=== PATIENT | female | born 1960 | race Caucasian/White ===

== ENCOUNTER → 2017-05-25 | Outpatient (CLI) | payer OTHER ==
--- NOTE | 2017-05-25 11:54 | RAD ---
Abdominal ultrasound without comparison for elevated LFTs. Technique and findings: Real-time grayscale and color and spectral Doppler evaluation of the abdominal organs is performed. The IVC is patent. Other midline structures including the aorta and the pancreas are poorly visualized due to overlying bowel gas and habitus. The liver is enlarged measuring 20.2 cm in length. There is diffuse fatty infiltration of the liver, with no definite focal hepatic parenchymal abnormalities are identified. No intra or extrahepatic biliary ductal dilatation. The common bile duct measures 2 mm in diameter. The gallbladder has been surgically removed. Spleen is normal in appearance. Both kidneys are normal in size and contour, with no hydronephrosis or focal parenchymal abnormalities. Normal color Doppler flow to both kidneys. The portal vein is patent. No free or loculated fluid collections are identified. No large abdominal masses are seen. Impression: 1. Hepatomegaly with diffuse fatty infiltration. No focal parenchymal abnormalities. 2. Prior cholecystectomy.
== END | disposition home or self-care (01) ==
LOC: US 11:11
PROVIDERS: ATTEND Internal Medicine Gastroenterology
DX: K76.0 Fatty (change of) liver, not elsewhere classified (principal); R16.0 Hepatomegaly, not elsewhere classified; R79.89 Other specified abnormal findings of blood chemistry; Z90.49 Acquired absence of other specified parts of digestive tract
CPT/HCPCS: 76700

== ENCOUNTER 2017-06-27 16:50 | Emergency (ER) | payer OTHER ==
[~2017-06-27] VITALS: Ht 157.5 cm; Wt 104.3 kg
[2017-06-27] MEDS ORDERED: DEXAMETHASONE SOD PHOS 20 MG/5 ML VIAL. IV ONE (17:30)
[2017-06-27] MEDS ORDERED: ONDANSETRON PF 4 MG/2 ML VIAL. IV ONE (17:30)
[2017-06-27] MEDS ORDERED: fentaNYL PF VIAL 100 MCG/2 ML VIAL IV PRN (17:30)
--- NOTE | 2017-06-27 17:33 | EKG ---
[facility] [address] [place] [address] Test Date: 2017-06-27 Test Time: 17:02:52 Pat Name: DAO FUNK Department: Room: Gender: F Buckle Gluer: : 1960 Requested By: AYLEEN RIVERA Order Number: [id number] Reading MD: Hannah Montilla Measurements Intervals [place] Rate: 73 P: -24 NC: 120 QRS: 6 QRSD: 90 T: 43 QT: 412 QTc: 458 Interpretive Statements SINUS RHYTHM NORMAL EKG Electronically Signed On 06-28-2017 19:46:40 CDT by Hannah Montilla
--- NOTE | 2017-06-27 17:40 | PHYS DOC ---
Past Medical History Past Medical History: Anxiety, Depression, Diabetes-Type II, Hypertension, Hypothyroid, Other Additional Past Medical Histor: FATTY LIVER. Past Surgical History: Cholecystectomy, Tubal ligation Additional Past Surgical Histo: ECTOPIC , EXPLORATORY LAPROSCOPY, LAP BAND Alcohol Use: None Drug Use: None Adult General Chief Complaint Chief Complaint: SHOULDER INJURY HPI HPI Patient is a 56 year old female who presents with complaint of left-sided shoulder pain. Patient states that her symptoms have been present over the past 9 days. Patient states that the pain starts at her left shoulder blade and radiates down the inside of her arm towards her left pinky finger. Patient states that she had similar symptoms in the past. Patient states she was admitted in November 2016 at [facility] where she underwent cardiac stress testing and echocardiogram. Patient states that these tests were negative for acute cardiac ischemia. The patient also notes that she has had outpatient carotid Dopplers ordered by her primary doctor which showed no significant findings. The patient states that the pain is burning in quality and does worsen with movement. Patient has been taking hydrocodone, ibuprofen, and Aleve with no relief in symptoms. Patient currently rates pain as 10 out of 10. Patient states that she has an appointment tomorrow with her arthritis physician , however she stated that the pain became so severe that she could not wait anymore for this appointment and came to the emergency department for pain control. Patient denies any associated shortness of breath, diaphoresis, or substernal chest pain with her symptoms. Review of Systems Review of Systems Constitutional: Denies fever or chills [] Eyes: Denies change in visual acuity, redness, or eye pain [] HENT: Denies nasal congestion or sore throat [] Respiratory: Denies cough or shortness of breath [] Cardiovascular: Denies chest pain[] GI: Denies abdominal pain, nausea, vomiting, bloody stools or diarrhea [] : Denies dysuria or hematuria [] Musculoskeletal: Left shoulder pain[] Integument: Denies rash or skin lesions [] Neurologic: Burning pain in left upper extremity, denies headache[] Current Medications Current Medications Current Medications Medications (Trade) Dose Ordered Sig/Carolynn Start Time Stop Time Status Last Admin Dose Admin Dexamethasone Sodium Phosphate (Decadron) 12 mg 1X ONCE 06/27/17 17:30 06/27/17 17:31 DC 06/27/17 18:17 12 MG Fentanyl Citrate (Fentanyl 2ml Vial) 50 mcg PRN Q15MIN PRN 06/27/17 17:30 06/27/17 19:44 DC 06/27/17 18:18 50 MCG Ondansetron HCl (Zofran) 4 mg 1X ONCE 06/27/17 17:30 06/27/17 17:31 DC 06/27/17 18:17 4 MG Allergies Allergies Allergies Coded Allergies Type Severity Reaction Last Updated Verified Penicillins Allergy Intermediate HIVES 06/27/17 Yes Physical Exam Physical Exam Constitutional: Alert, obese, afebrile, appears in moderate discomfort. [] HENT: Normocephalic, atraumatic, bilateral external ears normal, oropharynx moist, no oral exudates, nose normal. [] Eyes: PERRLA, EOMI, conjunctiva normal, no discharge. [] Neck: Normal range of motion, no tenderness, supple, no stridor. [] Cardiovascular:Heart rate regular rhythm, no murmur [] Lungs & Thorax: Bilateral breath sounds clear to auscultation [] Abdomen: Bowel sounds normal, soft, no tenderness, no masses, no pulsatile masses. [] Skin: Warm, dry, no erythema, no rash. [] Back: No tenderness, no CVA tenderness. [] Extremities: Posterior scapular tenderness to palpation, no cyanosis, no clubbing, ROM intact, no edema. [] Neurologic: Alert and oriented X 3, normal motor function, normal sensory function, no focal deficits noted. [] Current Patient Data Vital Signs Vital Signs Date Time Temp Pulse Resp B/P (MAP) Pulse Ox O2 Delivery O2 Flow Rate FiO2 06/27/17 19:36 68 18 146/71 (96) 94 Room Air 06/27/17 16:58 98.0 98.0 Lab Values Laboratory Tests Test 06/27/17 17:27 06/27/17 17:35 06/27/17 18:03 Sodium Level 139 mmol/L (136-145) Potassium Level 3.9 mmol/L (3.5-5.1) Chloride Level 102 mmol/L (98-107) Carbon Dioxide Level 25 mmol/L (21-32) Anion Gap 12 (6-14) Blood Urea Nitrogen 16 mg/dL (7-20) Creatinine 0.7 mg/dL (0.6-1.0) Estimated GFR (Cockcroft-Gault) 86.2 BUN/Creatinine Ratio 23 (6-20) H Glucose Level 204 mg/dL (70-99) H Calcium Level 9.2 mg/dL (8.5-10.1) Total Bilirubin 0.4 mg/dL (0.2-1.0) Aspartate Amino Transferase (AST) 81 U/L (15-37) H Alanine Aminotransferase (ALT) 91 U/L (14-59) H Alkaline Phosphatase 81 U/L (46-116) Total Protein 7.6 g/dL (6.4-8.2) Albumin 3.9 g/dL (3.4-5.0) Albumin/Globulin Ratio 1.1 (1.0-1.7) Lipase 338 U/L (73-393) White Blood Count 7.6 x10^3/uL (4.0-11.0) Red Blood Count 4.80 x10^6/uL (3.50-5.40) Hemoglobin 14.9 g/dL (12.0-15.5) Hematocrit 43.3 % (36.0-47.0) Mean Corpuscular Volume 90 fL (79-100) Mean Corpuscular Hemoglobin 31 pg (25-35) Mean Corpuscular Hemoglobin Concent 34 g/dL (31-37) Red Cell Distribution Width 13.0 % (11.5-14.5) Platelet Count 222 x10^3/uL (140-400) Neutrophils (%) (Auto) 64 % (31-73) Lymphocytes (%) (Auto) 26 % (24-48) Monocytes (%) (Auto) 6 % (0-9) Eosinophils (%) (Auto) 3 % (0-3) Basophils (%) (Auto) 1 % (0-3) Neutrophils # (Auto) 4.9 x10^3uL (1.8-7.7) Lymphocytes # (Auto) 2.0 x10^3/uL (1.0-4.8) Monocytes # (Auto) 0.4 x10^3/uL (0.0-1.1) Eosinophils # (Auto) 0.2 x10^3/uL (0.0-0.7) Basophils # (Auto) 0.1 x10^3/uL (0.0-0.2) Creatine Kinase 144 U/L (26-192) Creatine Kinase MB (Mass) 0.8 ng/mL (0.0-3.6) Creatine Kinase MB Relative Index 0.6 % (0-4) Troponin I Quantitative < 0.017 ng/mL (0.000-0.055) Urine Color Yellow Urine Clarity Clear Urine pH 5.5 Urine Specific [place] 1.025 Urine Protein 30 mg/dL (NEG-TRACE) Urine Glucose (UA) Negative mg/dL (NEG) Urine Ketones (Stick) Negative mg/dL (NEG) Urine Blood Negative (NEG) Urine Nitrite Negative (NEG) Urine Bilirubin Negative (NEG) Urine Urobilinogen Dipstick 0.2 mg/dL (0.2 mg/dL) Urine Leukocyte Esterase Trace (NEG) Urine RBC 0 /HPF (0-2) Urine WBC 1-4 /HPF (0-4) Urine Squamous Epithelial Cells Occ /LPF Urine Bacteria Few /HPF (0-FEW) Laboratory Tests 06/27/17 17:35 Laboratory Tests 06/27/17 17:27 EKG EKG Interpreted by me: Heart rate 73, sinus rhythm, normal intervals, normal axis, no acute ST/T-wave abnormalities present[] Radiology/Procedures Radiology/Procedures Not performed[] Course & Med Decision Making Course & Med Decision Making Pertinent Labs and Imaging studies reviewed. (See chart for details) Patient was treated with fentanyl and Decadron in the emergency department. Patient reports improvement in symptoms. The patient's cardiac enzymes were negative. Given the chronicity of 9 days with constant symptoms, one set of cardiac enzymes was drawn to rule out acute cardiac ischemia. The patient's symptoms are consistent with cervical radiculopathy. The patient will continue on Medrol Dosepak for anti-inflammatory treatment. Advised to continue on oral hydrocodone as needed for pain. Advised follow-up with the patient's arthritis physician tomorrow as scheduled for reevaluation and return to emergency department for any worsening symptoms. The patient voiced understanding and in agreement with treatment plan. Dragon Disclaimer Dragon Disclaimer This electronic medical record was generated, in whole or in part, using a voice recognition dictation system. Departure Departure Impression: Primary Impression: Cervical radiculopathy Disposition: HOME, SELF-CARE Condition: IMPROVED Referrals: LULU WHEATLEY MD (PCP) Patient Instructions: Cervical Radiculopathy Additional Instructions: Follow-up with your doctor tomorrow for reevaluation. Return to the emergency department for any worsening symptoms. Scripts Methylprednisolone (MEDROL) 4 Mg Tab.ds.pk 1 PKG PO UD, #1 PKG Prov: AYLEEN RIVERA MD 06/27/17 AYLEEN RIVERA MD Jun 27, 2017 17:40
[2017-06-27 17:48] LABS: BASO # 0.1 x10^3/uL (0.0-0.2); BASO % 1 % (0-3); EOS % 3 % (0-3); HEMATOCRIT 43.3 % (36.0-47.0); HEMOGLOBIN 14.9 g/dL (12.0-15.5); LYMPH % 26 % (24-48); MEAN CORPUSCULAR HEMOGLOBIN 31 pg (25-35); MEAN CORPUSCULAR HGB CONC 34 g/dL (31-37); MEAN CORPUSCULAR VOLUME 90 fL (79-100); MONO % 6 % (0-9); NEUT % 64 % (31-73); PLATELET COUNT 222 x10^3/uL (140-400); WHITE BLOOD COUNT 7.6 x10^3/uL (4.0-11.0)
[2017-06-27 18:04] LABS: CALCIUM 9.2 mg/dL (8.5-10.1); CREATININE 0.7 mg/dL (0.6-1.0); GFR 86.2; POTASSIUM 3.9 mmol/L (3.5-5.1)
[2017-06-27 18:17] LABS: ALBUMIN 3.9 g/dL (3.4-5.0); ALBUMIN/GLOBULIN RATIO 1.1 (1.0-1.7); TOTAL BILIRUBIN 0.4 mg/dL (0.2-1.0); TOTAL PROTEIN 7.6 g/dL (6.4-8.2)
[2017-06-27 18:21] LABS: BILIRUBIN,URINE NEGATIVE (NEG); GLUCOSE,URINE NEGATIVE (NEG); NITRITE,URINE NEGATIVE (NEG); PH,URINE 5.5; PROTEIN,URINE 30 mg/dL (NEG-TRACE); UROBILINOGEN,URINE 0.2 mg/dL (0.2 mg/dL)
[2017-06-27 18:22] LABS: CKMB MASS 0.8 ng/mL (0.0-3.6)
[2017-06-27 18:47] LABS: BACTERIA,URINE FEW /HPF (0-FEW); RBC,URINE 0 /HPF (0-2); SQUAMOUS EPITHELIAL CELL,UR OCC /LPF
[2017-06-27] MEDS ORDERED: METH4TAB2 PO (19:10)
[2017-06-27 19:36] VITALS: BP 146/71
== END 2017-06-27 19:37 | disposition home or self-care (01) ==
LOC: ER 16:50
DX: M54.12 Radiculopathy, cervical region (principal); E03.9 Hypothyroidism, unspecified; E11.9 Type 2 diabetes mellitus without complications; I10 Essential (primary) hypertension; F41.9 Anxiety disorder, unspecified; F32.9 Major depressive disorder, single episode, unspecified; Z88.0 Allergy status to penicillin
CPT/HCPCS: 36415; 80053; 81001; 82553; 83690; 84484; 85025; 87086; 93005; 96374; 96375; 99285; J1100; J2405; J3010